=== PATIENT | female | born 1955 | race Caucasian/White ===

== ENCOUNTER 2021-10-27 14:50 | Inpatient (IN) ==
[2021-10-27] MEDS ORDERED: LORazepam 2 mg VIAL 1 ml ONE (15:45)
[2021-10-27] MEDS ORDERED: levETIRAcetam IV 1,500 MG in NS 0.9% 100 ml BAG 100 ML IVPB ONE (15:50)
[2021-10-27] MEDS ORDERED: LORazepam 2 mg VIAL 1 ml IM ONE (15:58)
[2021-10-27] MEDS ORDERED: Lorazepam PYXIS KEY PRN (15:58)
[2021-10-27 16:12] LABS: ABS Basophils 0.1 10^3/ul (0-0.2); ABS Eosinophils 0.1 10^3/ul (0-0.6); ABS Lymphocytes 3.8 10^3/ul (1.0-4.8); ABS Monocytes 1.3 10^3/ul (0-0.8); ABS Neutrophils 8.2 10^3/ul (1.5-7.7); Eosinophil % 0.5 %; Hematocrit 48 % (35-47); Hemoglobin 15.5 g/dL (12.0-16.0); Lymphocyte % 28.1 %; Mean Corpuscular HGB Conc 32 g/dL (31-36); Mean Corpuscular Hemoglobin 28 pg (27-31); Mean Corpuscular Volume 88 fL (80-97); Mean Platelet Volume 7.7 fL (7.4-10.4); Platelet Count 442 10^3/uL (150-450); Red Blood Count 5.45 10^6 /uL (3.70-4.87); Red Cell Distribution Width 17 % (10-15); White Blood Count 13.4 10^3/uL (3.5-10.8)
[2021-10-27 16:46] LABS: ALT 17 U/L (7-52); AST 19 U/L (13-39); Acetaminophen < 15 mcg/mL; Albumin/Globulin Ratio 1.8 (1-3); Alcohol, S < 13 mg/dL (<13); Alkaline Phosphatase 149 U/L (35-149); Anion Gap 24 mmol/L (2-11); Blood Urea Nitrogen 16 mg/dL (6-24); CO2 Carbon Dioxide 15 mmol/L (22-32); Calcium 10.8 mg/dL (8.6-10.3); Chloride 105 mmol/L (101-111); Globulin 2.8 g/dL (2-4); Glucose 127 mg/dL (70-100); Potassium 3.6 mmol/L (3.5-5.0); Salicylate < 2.50 mg/dL (<30); Sodium 144 mmol/L (135-145); Total Protein 7.8 g/dL (6.4-8.9); eGFR CKD-EPI 66.1 (>60)
[2021-10-27 17:01] LABS: TSH Ultra Thyroid Stim Horm 2.05 mcIU/mL (0.34-5.60)
[2021-10-27 20:01] LABS: Rheumatoid Factor < 10 IU/mL (<15)
[2021-10-27 20:41] LABS: HIV 4th Generation Nonreactive (Nonreactive)
[2021-10-27] MEDS ORDERED: Lactated Ringers 1000 ml BAG 1,000 ML IV SCH (21:20)
[2021-10-27] MEDS: Enoxaparin 40 MG/0.4 ML SYR SUBCUT SCH (21:35)
[2021-10-27 21:38] LABS: Erythrocyte Sed Rate 8 mm/Hr (0-29)
[2021-10-27 21:44] LABS: Urine Appearance Cloudy; Urine Bilirubin Negative (Negative); Urine Blood 1+ (Negative); Urine Color Yellow; Urine Glucose Negative (Negative); Urine Ketones Negative (Negative); Urine Nitrite Negative (Negative); Urine Protein 1+(30 mg/dL) (Negative); Urine Specific Gravity 1.019 (1.002-1.030); Urine Urobilinogen Negative (Negative)
[2021-10-27 21:51] LABS: Urine Bacteria Absent (Absent); Urine Red Blood Cell Trace(0-2/hpf) (Absent); Urine Squamous Epithelial Cell Present (Absent); Urine White Blood Cell Trace(0-5/hpf) (Absent)
[2021-10-27 22:00] LABS: Urine Benzodiazepine Screen Presumptive Positive (None Detect); Urine Cannabinoids Screen Presumptive Positive (None Detect); Urine Opiates Screen None Detected (None Detect)
[2021-10-28] MEDS: CMC:Desmopressin 0.1 mg TAB (NF) PO SCH ×5 (00:47→21:05)
[2021-10-28] MEDS: DULoxetine DR 60 mg CAP PO SCH ×3 (00:48→20:10)
[2021-10-28 06:38] LABS: Hematocrit 41 % (35-47); Hemoglobin 13.4 g/dL (12.0-16.0); Mean Corpuscular HGB Conc 33 g/dL (31-36); Mean Corpuscular Hemoglobin 28 pg (27-31); Mean Corpuscular Volume 86 fL (80-97); Mean Platelet Volume 7.4 fL (7.4-10.4); Platelet Count 361 10^3/uL (150-450); Red Blood Count 4.78 10^6 /uL (3.70-4.87); Red Cell Distribution Width 16 % (10-15); White Blood Count 9.5 10^3/uL (3.5-10.8)
[2021-10-28 07:10] LABS: Calcium 9.4 mg/dL (8.6-10.3); Magnesium 2.6 mg/dL (1.9-2.7); Potassium 3.9 mmol/L (3.5-5.0); eGFR CKD-EPI 94.9 (>60)
[2021-10-28] MEDS: Enoxaparin 40 MG/0.4 ML SYR SUBCUT SCH (20:11)
[2021-10-29] MEDS: DULoxetine DR 60 mg CAP PO SCH ×2 (10:12→20:35)
[2021-10-29] MEDS: CMC:Desmopressin 0.1 mg TAB (NF) PO SCH ×4 (13:22→21:14)
[2021-10-29] MEDS: Enoxaparin 40 MG/0.4 ML SYR SUBCUT SCH (20:34)
[2021-10-30] MEDS: DULoxetine DR 60 mg CAP PO SCH (09:12)
[2021-10-30] MEDS: CMC:Desmopressin 0.1 mg TAB (NF) PO SCH ×3 (09:13→17:38)
[2021-10-30 12:17] LABS: Calcium 9.6 mg/dL (8.6-10.3); Potassium 4.5 mmol/L (3.5-5.0); eGFR CKD-EPI 100.2 (>60)
[2021-10-30 15:50] VITALS: BP 119/74
== END 2021-10-30 18:20 | disposition home or self-care (01) | DRG 101 ==
LOC: ED 14:50 → SUATTDRO 18:33 → EDHOLD 18:33 → MED 23:18
PROVIDERS: ADMIT Student in an Organized Health Care Education/Training Program; ATTEND Family Medicine

== ENCOUNTER 2024-08-13 09:07 | Inpatient (IN) ==
[2024-08-13 09:57] LABS: ABS Basophils 0.1 10^3/uL (0.0-0.1); ABS Eosinophils 0.1 10^3/uL (0.0-0.5); ABS Lymphocytes 1.8 10^3/uL (1.0-4.8); ABS Monocytes 0.7 10^3/uL (0.0-0.9); ABS Neutrophils 8.4 10^3/uL (1.5-7.6); ABS Nucleated RBC 0.01 10^3/ul; Eosinophil % 0.8 %; Hematocrit 48.4 % (35-45); Hemoglobin 16.3 g/dL (11.5-14.3); Lymphocyte % 16.5 %; Mean Corpuscular Hemoglobin 29.6 pg (27-33); Mean Corpuscular Hgb Conc 33.7 g/dL (31-36); Mean Corpuscular Volume 87.8 fL (80-97); Mean Platelet Volume 7.7 fL (7.5-11.2); Nucleated Red Blood Cells % 0.1 %/100WBC (0.0-0.8); Platelet Count 447 10^3/uL (150-450); Red Blood Count 5.52 10^6/uL (3.63-4.92); White Blood Count 11.1 10^3/uL (3.8-11.8)
[2024-08-13 10:01] LABS: Urine Appearance Clear; Urine Bilirubin Negative (Negative); Urine Blood Negative (Negative); Urine Color Colorless; Urine Glucose Negative (Negative); Urine Ketones Negative (Negative); Urine Nitrite Negative (Negative); Urine Protein Negative (Negative); Urine Specific Gravity 1.004 (1.002-1.030); Urine Urobilinogen Negative (Negative); Urine pH 6.5 (5.0-8.0)
[2024-08-13 10:18] LABS: Urine Benzodiazepine Screen None Detected (None Detect); Urine Cannabinoids Screen None Detected (None Detect); Urine Opiates Screen None Detected (None Detect)
[2024-08-13 10:22] LABS: High Sens Troponin Baseline 4 pg/mL (<15)
[2024-08-13 10:39] LABS: ALT 27 U/L (7-52); AST 21 U/L (13-39); Acetaminophen < 15 mcg/mL; Albumin 4.8 g/dL (3.5-5.7); Albumin/Globulin Ratio 1.7 (1-3); Alcohol, S < 13 mg/dL (<13); Alkaline Phosphatase 135 U/L (35-149); Anion Gap 13 mmol/L (2-16); Blood Urea Nitrogen 10 mg/dL (6-24); CO2 Carbon Dioxide 25 mmol/L (22-32); Calcium 10.4 mg/dL (8.6-10.3); Chloride 99 mmol/L (101-111); Globulin 2.9 g/dL (2-4); Glucose 118 mg/dL (70-100); Potassium 3.6 mmol/L (3.5-5.0); Salicylate < 2.50 mg/dL (<30); Sodium 137 mmol/L (135-145); Total Bilirubin 0.8 mg/dL (0.2-1.0); Total Protein 7.7 g/dL (6.4-8.9); eGFR CKD-EPI 81.2 (>60)
[2024-08-13 10:53] LABS: TSH Ultra Thyroid Stim Horm 1.31 mcIU/mL (0.34-5.60)
[2024-08-13] MEDS ORDERED: Al Hydrox/Mg Hydrox/Simet LIQ 30 ML UDC PO PRN (12:22)
[2024-08-13] MEDS: Desmopressin 0.01% NASAL 5 ML BTL ALT NARE ONE (14:37)
[2024-08-13] MEDS: DESMOPRESSIN 0.1 MG PO SCH ×2 (14:49→21:55)
[2024-08-13 15:38] LABS: High Sensitivity Troponin 1 Hr 6 pg/mL (<15)
[2024-08-13] MEDS: CMC:Desmopressin 0.1 mg TAB (NF) PO SCH (15:39)
[2024-08-13] MEDS ORDERED: CMC:Desmopressin 0.1 mg TAB (NF) PO SCH (21:00)
[2024-08-14] MEDS: Cholecalciferol (VIT D3) 1,000 unit TAB PO SCH (08:13)
[2024-08-14 08:25] LABS: HDL Cholesterol 78.2 mg/dL
[2024-08-14] MEDS: Fluticasone NASAL SPRAY 50MCG 16 gm SPRAY BTL INTRANASAL SCH (10:15)
[2024-08-17] MEDS: Dextran 70/Hypromellose Tears Eye Drops 15 ml BTL (for Artificials Tears) BOTH EYES PRN (22:39)
[2024-08-19] MEDS: DULoxetine DR 60 mg CAP PO SCH (15:16)
[2024-08-20 08:34] LABS: Creatinine, Serum 0.68 mg/dL (0.51-0.95); Potassium 4.3 mmol/L (3.5-5.0)
[2024-08-21] MEDS: Benzocaine/Menthol LOZ MT PRN (00:33)
[2024-08-24 08:47] VITALS: BP 126/79
== END 2024-08-24 15:13 | disposition home or self-care (01) | DRG 897 ==
LOC: ED 09:07 → EDHOLD 12:22 → BSU 13:52
PROVIDERS: ADMIT Psychiatry & Neurology Psychiatry; ATTEND Psychiatry & Neurology Psychiatry